=== PATIENT | male | born 1970 | race Caucasian/White ===

== ENCOUNTER 2021-02-08 15:03 | Outpatient (CLI) | payer OTHER, SELFPAY ==
--- NOTE | ~2021-02-08 | US_ITS ---
EXAMINATION: US soft tissue head and neck EXAM DATE: 02/08/2021 16:00 INDICATION: R22.1 - Localized swelling, mass and lump, neck. TECHNIQUE: Multiple grayscale and Doppler images of the neck symptomatic regions as indicated by franny ent were obtained (by a technologist who performed the scan) and subsequently reviewed. There is no prior study for comparison. FINDINGS: The right side of the neck there is internal jugular chain lymph nodes well within normal size limits . No lymph node identified on the left. No soft tissue mass identified subcutaneous fat and underlyin g sternocleidomastoid are unremarkable. IMPRESSION: 1. Unremarkable ultrasound exam. Reviewed, dictated and finalized at location B.
== END 2021-02-08 15:04 ==
PROVIDERS: Visit Provider Nurse Practitioner Family
DX: R22.1 Localized swelling, mass and lump, neck (principal)
CPT/HCPCS: 76536

== ENCOUNTER 2025-01-25 09:01 | Outpatient (CLI) | payer OTHER, SELFPAY ==
--- NOTE | ~2025-01-25 | XR_ITS ---
Right Knee Technique: AP, lateral, and sunrise views were obtained. Clinical History: Pain Findings: No fracture or dislocation is seen. Osseous alignment is anatomic. Mild degenerative change of the medial compartment. There is minimal degenerative change of the patellofemoral compartment. S oft tissues are unremarkable. No joint effusion is seen. Impression: Degenerative changes, as above. Reviewed, dictated and finalized at location M. Impression: Degenerative changes, as above.
--- OUTSIDE RECORDS SUMMARY | 2025-01-25 09:05 | XMS_ITS | Clinical Summary ---
Author Organization [facility] Address [address] [place] [address] Care Team Providers Care Shed Hand Name Role Phone Unavailable Primary Care Provider Unavailabl e Social History Tobacco Use Types Packs/Day Years Used Date Smoking Tobacco: Never Assessed Sex and Gender Information Value Date Recorded Sex Assigned at Not on file Legal Sex Male 7:11 PM CDT Gender Identity Not on file Sexual Orientation Not on file Plan of Treatment Health Maintenance Due Date Last Done Comments Colorectal Cancer Screening Colonoscopy (10 Years) 1971 Annual Physical 12/19/1974 Hepatitis C 12/19/1989 DTaP, Tdap and Td Vaccines ( 1 - Tdap) 12/19/1990 Hepatitis B Vaccines (1 of 3 - 19+ 3-dose series) 12/19/1990 Pneumococcal Vaccine: 50+ Ye ars (1 of 1 - PCV) 12/19/2021 Zoster Vaccines (1 of 2) 12/19/2021 COVID-19 Vaccine ( - 2023-2 5 season) 2024 Meningococcal B Vaccine Aged Out No l onger eligible based on patient's age to complete this topic Meningococcal Vaccine Aged Out No lui archana eligible based on patient's age to complete this topic RSV Immunizations Under 20 Months Aged Out No longer eligible based on patient's age to complete this topic
== END 2025-01-25 09:02 | disposition home or self-care (01) ==
PROVIDERS: PCP Family Medicine; Visit Provider Physician Assistant Medical
DX: M17.11 Unilateral primary osteoarthritis, right knee (principal)
CPT/HCPCS: 73562

== ENCOUNTER 2025-03-15 08:13 | Outpatient (CLI) | payer OTHER, SELFPAY ==
--- OUTSIDE RECORDS SUMMARY | 2015-01-12 19:00 | XMS_ITS | Continuity of Care Document ---
Author Organization [facility] Address [address] [place] [address] Phone Care Team Providers Care Educational Program Director Name Role Phone Administrative, Provider Unavailable Unavail able Procedures Procedure Date Medical Record Copy Medical Record Copy Per Page Affidavit Rating Letter Medical Record Copy Medical Record Copy Per Page Postop followup visit Supplemental Report Postop followup visit Supplemental Report Postop followup visit Supplemental Report Postop followup visit Supplemental Report Disability Form Postop followup visit Supplemental Report Knee arthscpy mnsctmy medial or lat Knee arthscpy mnsctmy medial or lat Office/outpatient visit,est, mod 2008 Supplemental Report Office consultation, moderate-high X-ray exam of knee, 1 or2 views 009 X-ray exam of knee, 1 or2 views 009 X-ray exam of both knees, standing Advance Directives Directive Yes / No Effective Date File Name No Information Encounters Encounter Description Practice Location Reason(s) For Visit Diagnoses Date Provider Providers Copied on Encounter [facility], [address] [address], [place], [place], [id number], [place] tel:[phone] [facility] No Information 3 0-201 5 Administrative Provider. [address] [place] [address], [place], [place], [id number], [place]. tel:[phone] Rating Letter [facility], [address] [place] [address], [place], [place], [id number], [place] tel:[phone] [facility] No Information Jan-0 7-200 9 No Information [facility], [address] [place] [address], [place], [place], [id number], [place] tel:[phone] [facility] No Information 2 3-200 9 Administrative Provider. [address] [place] [address], [place], [place], [id number], [place]. tel:[phone] [facility], [address] [place] [address], [place], [place], [id number], [place] tel:[phone] [facility] No Information November-2 7-200 9 No Information [facility], [address] [place] [address], [place], [place], [address], [place] tel:[phone] [facility] No Information May-0 5-200 9 No Information [facility], [address] [place] [address], [place], [place], [id number], [place] tel:[phone] [facility] No Information Oct-2 3-200 9 No Information [facility], [address] [place] [address], [place], [place], [id number], [place] tel:[phone] [facility] No Information Apr-0 7-200 9 No Information [facility], [address] [place] [address], [place], [place], [id number], [place] tel:[phone] [facility] No Information Apr-0 7-200 9 No Information [facility], [address] [place] [address], [place], [place], [id number], [place] tel:[phone] [facility] No Information 9 No Information [facility], [address] [facility] [address], [place], [place], [id number], [place] tel:[phone] [facility] No Information 9 No Information Office/outpa tient visit,est, mod [facility], [address] [facility] [address], [place], [place], [id number], [place] tel:[phone] [facility] No Information 9 No Information Office consultation , moderate-hig h [facility], [address] [facility] [address], [place], [place], [id number], [place] tel:[phone] [facility] No Information 9 No Information Family History Family Member Type Diagnosis Age At Onset No Information Payers Payer name Insurance type Covered libertarian ID Authoriza tion(s) No Information Social History Type Description Quantity Date Captured Comments Sex Male Smoking Status No Information Chief Complaint And Reason For Visit No Information Reason For Referral Reason For Referral No Information History Of Present Illness Encounter Date Complaint History Of Prese nt Illness No Information Functional Status Date Functional Assessmen t No Information Instructions Date Instruction Additional Infor mation No Information Assessments Type Assessment Date No Information Patient Care Teams Name Effective Dates (start - stop) Status Members No Information
--- OUTSIDE RECORDS SUMMARY | 2019-09-03 11:30 | XMS_ITS | Continuity of Care Document ---
Author Organization [facility] Address [address] [place] [address] [address] [place] [address] Phone Care Team Providers Care Release Of Information Clerk Name Role Phone Zoe Lanier DPT Unavailable Unavailable Procedures Procedure Date Progress Note Neuromuscular Re-Ed Therapeutic Activities Therapeutic Exercise Manual Therapy Therapeutic Activities Neuromuscular Re-Ed Therapeutic Exercise Manual Therapy PT Evaluation Low Complexity Therapeutic Activities Therapeutic Exercise PT Evaluation Low Complexity Therapeutic Exercise Progress Note Therapeutic Exercise Therapeutic Activities Neuromuscular Re-Ed Manual Therapy Therapeutic Exercise Therapeutic Activities Neuromuscular Re-Ed Therapeutic Exercise Therapeutic Activities Neuromuscular Re-Ed Manual Therapy Therapeutic Exercise Therapeutic Activities Neuromuscular Re-Ed Manual Therapy Therapeutic Exercise Therapeutic Activities Neuromuscular Re-Ed Manual Therapy Therapeutic Exercise Therapeutic Activities Neuromuscular Re-Ed Manual Therapy Therapeutic Exercise Therapeutic Activities Neuromuscular Re-Ed Manual Therapy Therapeutic Exercise Therapeutic Activities Neuromuscular Re-Ed Manual Therapy PT Evaluation Moderate Complexity Therapeutic Exercise Neuromuscular Re-Ed Manual Therapy Advance Directives Directive Yes / No Effective Date File Name No Information Encounters Encounter Description Practice Location Reason(s) For Visit Diagnoses Date Provider Providers Copied on Encounter [facility] [employer], [id number], tel:[phone] [place] No Information 0 Lanier Zoe. [address] [place] [address], [address], [facility], . tel:[phone] Referring Provider: Theodore Arteaga [address] [place] [address], [facility] [place]. [facility] [address], [place], [id number], tel:[phone] [place] No Information 0 Lanier Zoe. [address] [place] [address], [address], [facility], . tel:[phone] Referring Provider: Theodore Arteaga [address] [place] [address] [address], [place], [address] [facility] [address], [place], [id number], tel:[phone] [place] No Information 0 Lanier Zoe. [address] [place] [address], [address], [place], [facility], . tel:[phone] Referring Provider: Theodore Arteaga [address] [place] [address] [address] [place] [address], [facility] [place]. [facility] [facility] [address], [place], [place], [id number], tel:[phone] [place] Muscle weakness (generalized)Sti ffness of left ankle, not elsewhere classifiedPain in left ankle and joints of left footSprain of unspecified ligament of left ankle, subs encntr 9 Lanier Zoe. [address] [facility], [address], [place], [address], [place]. tel:[phone] [facility], [place], [place], [id number], [place] tel:[phone] [place] Pain in left ankle and joints of left footPain in left kneeOth symptoms and signs involving the musculoskeletal systemStiffness of left ankle, not elsewhere classified Lanier Zoe. [address] [facility], [address], [place], [address], [place]. tel:[phone] [facility], [place], [place], [address], [place] tel:[phone] [place] Pain in left ankle and joints of left footPain in left kneeOth symptoms and signs involving the musculoskeletal systemStiffness of left ankle, not elsewhere classified Lanier Zoe. [address] [facility], [address], [place], [address], [place]. tel:[phone] [facility], [place], [place], [id number], [place] tel:[phone] [place] Pain in left ankle and joints of left footPain in left kneeOth symptoms and signs involving the musculoskeletal systemStiffness of left ankle, not elsewhere classified 9 [place] Dilam. . [facility], [place], [place], [address], [place] tel:[phone] [place] Pain in left ankle and joints of left footPain in left kneeOth symptoms and signs involving the musculoskeletal systemStiffness of left ankle, not elsewhere classified 9 Lanier Zoe. [address] [facility], [address], [place], [address], [place]. tel:[phone] [facility], [place], [place], [id number], [place] tel:[phone] [place] Pain in left ankle and joints of left footPain in left kneeOth symptoms and signs involving the musculoskeletal systemStiffness of left ankle, not elsewhere classified 9 Yannick Zoe[address] [place] [address], [address], [place], [facility], . tel:[phone] [facility] [address], [place], [id number], [place] tel:[phone] [place] Pain in left ankle and joints of left footPain in left kneeOth symptoms and signs involving the musculoskeletal systemStiffness of left ankle, not elsewhere classified Yannick Zoe. [address] [place] [address], [address], [place], [facility], . tel:[phone] [facility], [place], [address], [place] tel:[phone] [place] Pain in left ankle and joints of left footPain in left kneeOth symptoms and signs involving the musculoskeletal systemStiffness of left ankle, not elsewhere classified Yannick Trancey. [address] [place] [address], [address], [place], [facility], . tel:[phone] [facility], [place], [id number], [place] tel:[phone] [place] Pain in left ankle and joints of left footPain in left kneeOth symptoms and signs involving the musculoskeletal systemStiffness of left ankle, not elsewhere classified [place] Dilma. . [facility], [place], [place], [address], [place] tel:[phone] [place] Pain in left ankle and joints of left footPain in left kneeOth symptoms and signs involving the musculoskeletal systemStiffness of left ankle, not elsewhere classified [place] Dilma. . Family History Family Member Type Diagnosis Age At Onset No Information Payers Payer name Insurance type Covered libertarian ID Reanna rosa(s) [facility] [id number] Social History Type Description Quantity Date Captured Comments Sex Male Smoking Status No Information Chief Complaint And Reason For Visit No Information Reason For Referral Reason For Referral No Information History Of Present Illness Encounter Date Complaint History Of Prese nt Illness No Information Functional Status Date Functional Assessmen t No Information Instructions Date Instruction Additional Yonnyr marta Giving encouragement to exercise Related to Overweight Assessments Type Assessment Date No Information Patient Care Teams Name Effective Dates (start - stop) Status Members No Information
--- NOTE | ~2025-03-15 | XR_ITS ---
EXAM/ PROCEDURE: XR knee LT min 4V - 03/15/2025 8:23 CDT HISTORY: 54 years old Male with M17.12 - Unilateral primary osteoarthritis, left knee COMPARISON: None available TECHNIQUE: Three view(s) FINDINGS/ IMPRESSION: There are no fractures or dislocations.Joint space narrowing, subchondral sclerosis, subchondral cyst formation and osteophyte formation, compatible with mild osteoarthritis. Reviewed, dictated and finalized at location N.
--- OUTSIDE RECORDS SUMMARY | 2025-03-15 08:16 | XMS_ITS | Clinical Summary ---
Author Organization [facility] Address [address] [place] [address] Care Team Providers Care Transmission Assembler Name Role Phone Unavailable Primary Care Provider [...]
== END 2025-03-15 08:14 | disposition home or self-care (01) ==
LOC: ANHLAB 08:14
PROVIDERS: PCP Family Medicine; Visit Provider Orthopaedic Surgery
DX: M17.12 Unilateral primary osteoarthritis, left knee (principal)
CPT/HCPCS: 73564